=== PATIENT | female | born 1990 | race Caucasian/White ===

== ENCOUNTER 2021-12-06 07:58 | Outpatient (CLI) | payer BC ==
[2021-12-06 22:50] LABS: SARS-CoV-2 PCR by NAA Not Detected (NotDetected)
== END 2021-12-06 07:59 | disposition home or self-care (01) ==
LOC: CSHLAB 07:58
PROVIDERS: ATTEND Obstetrics & Gynecology
DX: Z20.822 Contact with and (suspected) exposure to COVID-19 (principal)
CPT/HCPCS: U0003; U0005

== ENCOUNTER 2021-12-11 19:00 | Inpatient (IN) | payer BC ==
[~2021-12-11 19:00] MED LIST: Bupivacaine 0.25% HCL 30 ML VIAL ONE
[2021-12-11] MEDS ORDERED: Promethazine HCl 25 MG/ML VIAL IM PRN (20:45)
[2021-12-11] MEDS ORDERED: Carboprost 250 MCG/ML AMP IM PRN (20:45)
[2021-12-11] MEDS ORDERED: Ibuprofen 800 MG TAB PO PRN (20:45)
[2021-12-11] MEDS ORDERED: Acetaminophen 500 MG TAB PO PRN (20:45)
[2021-12-11] MEDS ORDERED: Misoprostol 200 MCG TAB PR PRN (20:45)
[2021-12-11] MEDS ORDERED: Ondansetron PF 4 MG/2 ML Vial IVP PRN (20:45)
[2021-12-11] MEDS ORDERED: Diphenoxylate HCl/Atropine Tablet PO PRN ×2 (20:45)
[2021-12-11] MEDS ORDERED: hydrALAZINE 20 MG/ML VIAL SLOW IVP PRN (20:45)
[2021-12-11] MEDS ORDERED: Lidocaine 1% (PF) 30 ML VIAL SC PRN (20:45)
[2021-12-11] MEDS ORDERED: Methylergonovine 0.2 MG/ML VIAL IM PRN (20:45)
[2021-12-11] MEDS ORDERED: Lactated Ringer's 1,000 ML IV SCH (22:00)
[2021-12-11] MEDS ORDERED: NS w/ Oxytocin 30 units 500 ML IV SCH ×2 (22:00)
[2021-12-11 22:11] LABS: Hemoglobin 10.8 g/dL (12.0-15.5); Mean Corpuscular HGB CONC 32.1 g/dL (32.0-36.0); Mean Corpuscular Hemoglobin 24.9 pg (27.0-33.0); Mean Corpuscular Volume 77.4 fl (81.6-98.3); Mean Platelet Volume 11.6 fl (7.4-10.4); Platelet Count 240 10x3/uL (150-450); RBC Distribution Width 14.9 % (11.5-14.5); Red Blood Cell (RBC) Count 4.34 10x6/uL (3.90-5.03); White Blood Cell (WBC) Count 11.6 10x3/uL (3.5-10.5)
[2021-12-11 22:53] LABS: Syphilis Antibody Nonreactive (Nonreactive); Syphilis Antibody Index 0.04 S/CO (<1.00 Non-Reactive)
[2021-12-11 22:54] LABS: Hep B Surf Ag Non-Reactive S/CO (NonReactive)
[2021-12-11 23:51] LABS: HBSAg Index 0.16 S/CO (0-0.99)
[2021-12-12] MEDS ORDERED: Fentanyl 2 mcg/Bup 0.1% Cadd 100 ML ONE (02:22)
[2021-12-12 09:34] LABS: RapidComm Collect By CBN
[2021-12-12] MEDS ORDERED: diphenhydrAMINE 25 MG CAP PO PRN (09:41)
[2021-12-12] MEDS ORDERED: Bisacodyl 10 MG SUPP PR PRN (09:41)
[2021-12-12] MEDS ORDERED: traMADol HCl 50 MG TAB PO PRN (09:41)
[2021-12-12] MEDS ORDERED: Lanolin Ointment 7 GM TUBE TOP PRN (09:41)
[2021-12-12] MEDS ORDERED: hydrALAZINE 20 MG/ML VIAL SLOW IVP PRN (09:41)
[2021-12-12] MEDS ORDERED: Milk Of Magnesia 30 ML UDCUP PO PRN (09:41)
[2021-12-12] MEDS ORDERED: Preparation H Ointment 28 GM TUBE PR PRN (09:41)
[2021-12-12] MEDS ORDERED: Witch Hazel-Glycerin 1 EACH JAR TOP SCH (13:00)
[2021-12-12] MEDS ORDERED: Benzocaine-Menthol 82.5 ML CAN TOP SCH (13:00)
[2021-12-12] MEDS: Ferrous Sulfate 325 MG TAB PO SCH (15:26)
[2021-12-12] MEDS: Acetaminophen 500 MG TAB PO PRN ×2 (15:48→21:28)
[2021-12-12] MEDS: Ibuprofen 800 MG TAB PO SCH (18:00)
[2021-12-12] MEDS: Docusate 100 MG CAP PO SCH (21:28)
[2021-12-13] MEDS: Ibuprofen 800 MG TAB PO SCH ×2 (02:29→09:55)
[2021-12-13] MEDS: Acetaminophen 500 MG TAB PO PRN ×2 (05:07→14:23)
[2021-12-13] MEDS: Ferrous Sulfate 325 MG TAB PO SCH ×2 (07:31→07:32)
[2021-12-13 07:46] VITALS: BP 100/61; TEMP 97.6
[2021-12-13] MEDS ORDERED: Prenatal Vitamin 1 TAB PO SCH (09:00)
[2021-12-13] MEDS ORDERED: Boostrix 0.5 ML (Tdap) VIAL IM ONE (09:41)
[2021-12-13] MEDS: Docusate 100 MG CAP PO SCH (09:55)
== END 2021-12-13 15:30 | disposition home or self-care (01) | DRG 807 ==
LOC: CSHLD 19:34 → CSHPED 12-12 11:45
PROVIDERS: ADMIT Obstetrics & Gynecology; ATTEND Obstetrics & Gynecology
PROC: 10D07Z3 Extraction of Products of Conception, Low Forceps, Via Natural or Artificial Opening (ICD-10-PCS; principal; 2021-12-12)
PROC: 0KQM0ZZ Repair Perineum Muscle, Open Approach (ICD-10-PCS; 2021-12-12)
DX: O76 Abnormality in fetal heart rate and rhythm complicating labor and delivery (principal); Z37.0 Single live birth; Z3A.40 40 weeks gestation of pregnancy; O70.1 Second degree perineal laceration during delivery
CPT/HCPCS: 51702; 82805; 85027; 86780; 86850; 86900; 86901; 87340; J2590; S0020